=== PATIENT | male | born 1940 | race Hispanic/Latino ===

== ENCOUNTER 2016-10-03 09:10 | Outpatient (CLI) | payer MEDICARE, BC ==
--- NOTE | 2016-10-04 14:19 | PET Report ---
PET/CT:10/03/16 09:10:00 CLINICAL: Single pulmonary nodule. RADIOPHARMACEUTICAL: 12.2mCi F18-FDG. COMPARISON: None. TECHNIQUE- Following intravenous injection of F-18 FDG and an approximately 60 minute uptake period, CT and PET images from the mid skull to the upper thighs were acquired with the patient in the fasted state. No contrast was administered. The CT protocol used for this PET CT study is designed for attenuation correction and anatomic localization of PET abnormalities. This senior treasury consultant CT is not desired to produce and cannot replace, ahlac-xa-fyd-art diagnostic CT scans with specific imaging protocols for different body parts and indications. Plasma glucose at the time of this test: 104g/dl. The standardized uptake values (SUV) are normalized to patient body weight and indicate the highest activity concentration (SUV max) in a given disease site. FINDINGS: Brain--Physiologic FDG uptake in the visualized regions of the brain. Neck--Physiologic FDG uptake . Chest--Physiologic FDG uptake in mediastinal blood pool and myocardium. The heart is large. Lungs--No abnormal uptake. No pulmonary nodule or mass. Mild right middle lobe subsegmental atelectasis versus scar. There is adjacent mild thickening of the major fissure. Pleura/pericardium--No abnormal uptake. Thoracic nodes--No abnormal uptake. Hepatobiliary--The liver is small with no nodularity or mass. Left hepatic cysts measure 1.4 and 0.5 cm. No abnormal uptake. Liver background SUV mean, as a reference for comparing FDG studies, is 3.3 . Spleen--No abnormal uptake. Pancreas--No abnormal uptake. Adrenal Glands--No abnormal uptake. Kidneys/Ureters/Bladder--No abnormal uptake. Bilateral renal cysts. A 3.9 cm left renal cyst in the midportion of the kidney and a 4.3 cm right lower pole renal cyst. Abdominopelvic Nodes--No abnormal uptake. Bowel/Peritoneum/Mesentery--No abnormal uptake. Pelvic organs--No abnormal uptake. Bones/Soft Tissues--No abnormal uptake. No suspicious bone lesions. 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 IMPRESSION- 1. No pulmonary nodule or mass. 2. Mild right middle lobe subsegmental atelectasis versus scar. 3. Small liver but no other signs of liver disease. 4. Benign left hepatic cysts. 5. Cardiomegaly. 6. No abnormal FDG uptake.
== END 2016-10-03 09:11 | disposition home or self-care (01) ==
LOC: PET 09:10
PROVIDERS: ATTEND Internal Medicine Critical Care Medicine
DX: R91.1 Solitary pulmonary nodule (principal); I51.7 Cardiomegaly; N28.1 Cyst of kidney, acquired; K76.89 Other specified diseases of liver; Z96.641 Presence of right artificial hip joint
CPT/HCPCS: 78815; 82962; A9552